=== PATIENT | female | born 1945 | race Caucasian/White ===

== ENCOUNTER → 2018-02-15 14:54 | Outpatient (CLI) | payer OTHER, SELFPAY ==
[2018-02-15 16:42] LABS: Alanine Aminotransferase 32 IU/L (9-52); Albumin 4.1 g/dL (3.5-5.0); Albumin Globulin Ratio 1.6 (1.0-2.8); Alkaline Phosphatase 76 U/L (38-126); Aspartate Aminotransferase 25 IU/L (14-36); BUN Creatinine Ratio 27.5 (6-22); Bilirubin Total 0.5 mg/dL (0.2-1.3); Blood Urea Nitrogen 22 mg/dL (7-17); Calcium 9.7 mg/dL (8.4-10.2); Carbon Dioxide 30 mmol/L (22-32); Chloride 99 mmol/L (98-107); Estimated Glomerular Filt Rate > 60.0 mL/min (>60); Globulin 2.5 g/dL (1.7-4.1); Glucose 92 mg/dL (80-110); HEMOLYSIS < 15 (0-50); Potassium 3.8 mmol/L (3.4-5.1); Sodium 140 mmol/L (137-145); Total Protein 6.6 g/dL (6.3-8.2)
[2018-02-15 17:00] LABS: Free T4, Direct Thyroxine 1.54 ng/dL (0.78-2.19)
[2018-02-15 17:14] LABS: Thyroid Stimulating Hormone 1.38 uIU/mL (0.47-4.68)
== END ==
PROVIDERS: PCP Internal Medicine; Visit Provider Internal Medicine
DX: E03.9 Hypothyroidism, unspecified (principal); I10 Essential (primary) hypertension; K21.9 Gastro-esophageal reflux disease without esophagitis
CPT/HCPCS: 36415; 80053; 84439; 84443

== ENCOUNTER → 2018-04-16 11:17 | Outpatient (CLI) | payer OTHER, SELFPAY ==
[2018-04-16 12:49] LABS: Blood Urea Nitrogen 20 mg/dL (7-17); Calcium 9.1 mg/dL (8.4-10.2); Carbon Dioxide 31 mmol/L (22-32); Chloride 103 mmol/L (98-107); Estimated Glomerular Filt Rate > 60.0 mL/min (>60); Glucose 84 mg/dL (80-110); HEMOLYSIS < 15 (0-50); Potassium 3.7 mmol/L (3.4-5.1); Sodium 143 mmol/L (137-145)
[2018-04-16 13:01] LABS: Free T4, Direct Thyroxine 1.37 ng/dL (0.78-2.19)
[2018-04-16 13:15] LABS: Thyroid Stimulating Hormone 0.11 uIU/mL (0.47-4.68)
== END ==
PROVIDERS: PCP Internal Medicine; Visit Provider Internal Medicine
DX: E03.9 Hypothyroidism, unspecified (principal); I10 Essential (primary) hypertension
CPT/HCPCS: 36415; 80048; 84439; 84443

== ENCOUNTER → 2018-10-17 12:49 | Outpatient (CLI) | payer OTHER, SELFPAY ==
--- NOTE | 2018-10-17 | DI.CT.S_ITS ---
PROCEDURE: CT UE LT WO CON INDICATIONS: Primary osteoarthritis, left shoulder pain TECHNIQUE: Noncontrast 1-1.5 mm thick sections acquired from the acromioclavicular joint to the inferior scapula, with coronal and sagittal reformatting. COMPARISON: None. FINDINGS: Image quality: Excellent. Bones: No acute fracture or focal osseous destruction. There is cervical spondylosis. There is severe glenohumeral joint degeneration with prominent osteophyte formation, subchondral sclerosis and cystic change. There is anatomic alignment. Mild AC joint degeneration. Segmental degenerative cystic change and cortical hypertrophy at the posterior glenoid raises the possibility of chronic posterior labral tear. Diffuse osteopenia. Soft tissues: Visualized lungs unremarkable. Fatty infiltration and atrophy of the infraspinatus muscle. IMPRESSION: Severe glenohumeral and mild AC joint degeneration. Extensive segmental degenerative changes and hypertrophy of the posterior glenoid suggests chronic posterior labral tear. Cervical disc degeneration. Atrophy of the infraspinatus muscle suggests long-standing infraspinatus tendon full versus partial-thickness tear. Dictated by: Flash Oneal M.D. on 10/17/2018 at 15:35 Approved by: Flash Oneal M.D. on 10/17/2018 at 15:40
== END ==
PROVIDERS: PCP Internal Medicine; Visit Provider Orthopaedic Surgery
DX: M19.012 Primary osteoarthritis, left shoulder (principal); M50.30 Other cervical disc degeneration, unspecified cervical region
CPT/HCPCS: 73200

== ENCOUNTER → 2018-11-26 11:35 | Outpatient (CLI) | payer OTHER, SELFPAY ==
[2018-11-26 12:52] LABS: Hematocrit 41.4 % (36-46); Hemoglobin 13.5 g/dL (12.0-16.0); Mean Corpuscular HGB Conc 32.7 % (30-36); Mean Corpuscular Hemoglobin 30.2 PG (26-34); Mean Corpuscular Volume 92.4 fL (80-100); Platelet Count 348 X10^3/uL (150-400); Red Blood Cell Count 4.48 X10^6/uL (4.0-5.2); Red Cell Distribution Width 14.5 % (11.6-14.8); White Blood Cell Count 7.4 X10^3/uL (4.5-11.0)
[2018-11-26 13:02] LABS: Prothrombin Time 11.8 SECONDS (10.1-12.7)
[2018-11-26 13:56] LABS: Carbon Dioxide 29 mmol/L (22-32); Chloride 101 mmol/L (98-107); HEMOLYSIS < 15 (0-50); Potassium 5.1 mmol/L (3.4-5.1); Sodium 138 mmol/L (137-145)
== END ==
PROVIDERS: PCP Internal Medicine; Visit Provider Orthopaedic Surgery
DX: Z01.818 Encounter for other preprocedural examination (principal); Z51.81 Encounter for therapeutic drug level monitoring
CPT/HCPCS: 36415; 80051; 85027; 85610; 93005

== ENCOUNTER 2018-12-06 09:10 | Inpatient (IN) | payer OTHER, SELFPAY ==
[2018-11-25 13:57] VITALS: BMI 34.0
[2018-12-06] VITALS (16 sets, daily range): BP systolic 100–131; BP diastolic 61–85; PULSE 74–104; RESP 12–20; TEMP 36.5–36.8; O2SAT 91–100; BMI 34.0
--- NOTE | 2018-12-06 06:00 | DI.RAD.S_ITS ---
PROCEDURE: XR SHOULDER LT MIN 2V INDICATIONS: POST OP TECHNIQUE: 2 views of the shoulder were acquired. COMPARISON: None. FINDINGS: Bones: Patient is status post left shoulder arthroplasty. Shoulder alignment is anatomic. No fracture or dislocation. No gross hardware loosening or failure. Soft tissues: Post surgical changes are noted in lateral left shoulder soft tissue. IMPRESSION: Post left shoulder arthroplasty changes with anatomic shoulder alignment. Dictated by: Khadar Penn M.D. on 12/06/2018 at 15:22 Approved by: Khadar Penn M.D. on 12/06/2018 at 15:23
[2018-12-06] MEDS: ACETAMINOPHEN 325 MG TABLET 975 MG PO (09:36)
[2018-12-06] MEDS: PREGABALIN 75 MG CAPSULE PO (09:37)
[2018-12-06] MEDS: CELECOXIB 200 MG CAPSULE PO (09:38)
[2018-12-06] MEDS: LACTATED RINGERS 1,000 ML 42 ML IV ×2 (09:40→11:55)
[2018-12-06] MEDS: VANCOMYCIN 1,000 MG/200 ML PIGGYBACK 200 MG IV ×2 (09:55→21:08)
--- NOTE | 2018-12-06 10:33 | PM.PREOP ---
Pre-operative Note Interval Note History & Physical reviewed/Exam performed by Physician: Yes Changes to H&P: No
[2018-12-06] MEDS: fentaNYL 100 MCG/2 ML INJ 50 MCG IV ×2 (10:55→11:00)
[2018-12-06] MEDS: MIDAZOLAM 2 MG/2 ML VIAL IV (10:55)
[2018-12-06] MEDS: GENTAMICIN 200 MG in SODIUM CHLORIDE 0.9% 100 ML 105 ML IV (11:10)
--- NOTE | 2018-12-06 11:16 | SUR.PREOP ---
Block start time [1055] . Monitoring initiated and maintained throughout procedure. Oxygen and medications given per anesthesiologist instructions. Patient remained stable throughout procedure, no adverse reactions noted. Block end time [1105].
--- NOTE | 2018-12-06 11:47 | SUR.OPER ---
Beach chair with skytron shoulder positioner. Lower body on padded OR bed. Head in foam padded head cradle, secured with straps. Non-operative arm secured <90 degrees abduction. Pillow under knees. Safety belt at thigh. Cloth tape over blanket over lower legs.
[2018-12-06] MEDS: LIDOCAINE 1% W/EPI INJ 20 ML INJ ×2 (12:03→12:04)
--- NOTE | 2018-12-06 13:42 | PM.OP.1 ---
Operative Date/Time/Diagnoses Date of procedure: 12/06/18 Time of procedure: 11:31 Pre-op diagnosis: Left end-stage shoulder arthritis Post-op diagnosis: same Procedure & Clinicians Procedure: Left total shoulder arthroplasty Same procedure as scheduled: Yes Indications: Left end-stage glenohumeral joint arthritis Surgeon: Reza Hendrix Vegetable Preparer: Macarena Walker Anesthesia Type: General and Peripheral nerve block Operative Notes Findings: End-stage arthritic changes to the glenohumeral joint. No sign of any significant rotator cuff pathology. Osteophytes involving the anterior and inferior aspect of the humeral head and neck. Some deformity to the humeral head due to arthritis. Some mild posterior wear of the glenoid. Closure Type: primary Specimen(s): none sent Prosthetic devices, grafts, tissues, transplants, or devices: Arthrex 6mm stem, Small Glenoid, 44x17 head Applied: implant(s) Estimated Blood Loss (mL): 100 Blood products transfused: none Procedure in detail: On date of service, Patient was met in the holding area. The operative site was signed and witnessed by the OR staff. The surgeries once again discussed with the patient and any remaining questions they had were answered fully. Patient was taken back to the operating theater and placed on the operating table in a supine position. Great care was taken to ensure that all bony prominences were properly padded. Patient was then placed into the beach chair position. The head and neck were properly positioned and secured. A timeout was performed verifying patient's name, procedure, and the operative site. The upper extremity was then prepped and draped in the normal sterile fashion. Previously, the bony anatomy and incision were marked out as well as injected with Marcaine with epinephrine. A deltopectoral approach was performed. 10 blade was used to incise the skin and fascial tissue. A deep knife was used to continue sharp dissection until the cephalic vein was visualized. The cephalic vein was dissected free allowing us to expose the deltopectoral interval. This interval was then developed. A Pruitt elevator was used to free up the deltoid of any scarring both superficially as well as deeply. The vein and the deltoid were taken laterally while the pectoralis was taken medially. This gave us good visualization of the strap muscles. The clavipectoral fascia was removed and the strap muscles were then retracted medially with the pectoralis. This gave us stabilization of the subscapularis. The circumflex vessels were ligated and the subscapularis was sharply excised off the lesser tuberosity and then tagged. Once the subscapularis was released we're able to dislocate the shoulder. Patient had end-stage arthritic changes to the humeral head as well as the glenoid with large osteophytes anterior inferiorly as well as posteriorly. A Ronger was then used to remove the osteophytes. Next, cutting guide was placed and a saw was used to remove the humeral head. Once the head was removed it was templated. A starting awl was then used to find the canal and then the humerus was reamed and broached. Trial stem was placed and a variety of heads were trialed. A protector placed for the osteotomy was then placed and and we turned our attention back to the subscapularis as well as the glenoid. The subscapularis was freed up and a 360? fashion. The degenerative anterior and inferior capsular tissue was removed. This was followed by removing the degenerative labral tissue from around the glenoid as well as the biceps insertion. This gave us good visualization of the glenoid. Glenoid trials were used until we found the appropriate fit and curvature. Next the center hole was drilled followed by reaming of the glenoid. The wound was copiously irrigated after reaming. Next the pegs were drilled and a trial glenoid was impacted into place. Once we were satisfied with the preparation of the glenoid, the final component was cemented into place. This was followed by impaction. We Return to our attention back to the humerus. The protector plate was removed and heads were trialed once again and so we found the appropriate fit. The trials were removed and bone tunnels were made into the humeral neck. #2 FiberWire were passed through the bone tunnels for eventual subscapularis repair. The final stem and head were impacted into place and the shoulder was reduced. It was taken through range of motion and was felt to be stable in both posterior translation as well as external and internal rotation with abduction. The subscapularis was repaired back to the lesser tuberosity through the bone tunnels. This was then reinforced with soft tissue repair. Part of the rotator interval was then closed. A drain was placed and the rest of the wound was closed in a layered fashion. The shoulder was then cleaned dried and dressed and the patient was taken to the PACU in stable condition. Patient will follow our postoperative protocol for total shoulder arthroplasty. Complications: none Condition: stable Disposition: PACU Plan for aftercare: Patient will be admitted overnight for pain control. Patient can go home tomorrow as long as she is comfortable. Patient will follow our postoperative protocol for total shoulder arthroplasty.
[2018-12-06] MEDS: HYDROCODONE/ACET 5/325 TABLET 1 TAB PO ×2 (14:37→15:10)
--- NOTE | 2018-12-06 15:40 | SUR.PHASEI ---
Pt transferred to room 209 via bed with all belongings. Last vital signs stable and last assessment stable; see flowsheet documentation for details. Report given to ASPEN Pabon prior to transfer. Upon arrival to room 209 Pepper to bedside; handoff assessment done. ASPEN Pabon to assume care of pt at this time.
[2018-12-06] MEDS: LACTATED RINGERS 1,000 ML 125 ML IV (16:39)
--- NOTE | 2018-12-06 17:58 | PT.IIE ---
Current Diagnoses Primary osteoarthritis, left shoulder (12/06/18) Surgery Performed Operation Date: 12/06/18 11:00 Actual Procedures p Total Shoulder Arthroplasty(Left) - Reza Hendrix MD Surgical History (Last Updated 11/25/18 @ 14:21 by Kiara Newby RN) Hx of appendectomy (Acute ~1983) Hx of cholecystectomy (Acute ~1983) Hx of tonsillectomy (Acute) History of arthroplasty (Resolved) History of breast biopsy (Resolved ~1985) History of gastric bypass (Resolved ~2015) Medical History (Last Updated 11/25/18 @ 14:22 by Kiara Newby RN) Chronic pain syndrome (Chronic) Essential hypertension (Chronic) Hypothyroidism (acquired) (Chronic) GERD (gastroesophageal reflux disease) (Chronic) Fibromyalgia (Chronic) Osteoarthritis (Chronic) Generalized anxiety disorder (Chronic) Depression (Chronic) Obstructive sleep apnea syndrome (Chronic 06/07/15) Chronic pain of both ankles (Chronic 11/30/16) Amputated toe of right foot (Acute ~12/2016) Easy bruisability (Acute) H/O: hysterectomy (Acute ~1984) Joint pain (Acute) Numbness (Acute) Morbid obesity due to excess calories (Resolved 06/07/15) Physical Therapy Inpatient Evaluation/Re-Eval M1 PT/OT-IP Prior Functional Status Start: 12/06/18 17:25 Freq: NEEDED Status: Active Protocol: Document 12/06/18 17:10 (Rec: 12/06/18 17:58 [id number]) Medical Review Prior Functional Status Medical History Reviewed Yes Diet/Fluid Consistency Regular Communication Able to make needs known Mobility and Gait Pt is independent for mobility at home and community without AD, but pt usually leave her 4WW next to steps at entrance for support. She also uses 4WW at night from bed to bathroom . Activities of Daily Living and IADL's Independent for ADLs and IADLs without AD. Social History Household Members spouse Living Arrangements House Number of Floors (Floors) Two Floors Number of Stairs To Enter/Railing? 1 threshold to enter without rails Home Environment Standard Height Toilet Walk in Shower Home Equipment Four Wheel Walker Straight Cane Shower Seat with Backrest Employment Status Retired Additional Social History Comment Pt lives wiht her in [place] and granddtr visits them occasionally. Pt anticipates to follow up with outpatient PT in [place] in 10 days. PMH includes bilateral TKA, wearing braces for her B pronated feet. M2 PT-IP Current Condition Start: 12/06/18 17:25 Freq: NEEDED Status: Active Protocol: Document 12/06/18 17:10 (Rec: 12/06/18 17:58 [id number]) Physical Therapy Current Condition Current Condition Evaluation Date 12/06/18 Treatment Diagnosis R TSA Onset Date 12/06/18 Precautions Shoulder Precautions Sling PROM Internal Rotation to Body No External Rotation No Abduction Forward Flexion to 90 degrees Pendulums Weight Bearing Status Weight Bearing Status Non-Weight Bearing M3 PT-IP Subjective Start: 12/06/18 17:25 Freq: NEEDED Status: Active Protocol: Document 12/06/18 17:10 (Rec: 12/06/18 17:58 [id number]) Subjective Physical Therapy Visit Type Type Initial Evaluation Visit Start Time 17:10 Visit Stop Time 17:30 Total Visit Minutes 20 Notes pt;s at bedside Number of SHIPPING HAND Visits 0 Physical Therapy Visit Comments Patient Comments Pt agreeable to mobilize with PT Patient Goals To return home and participate outpatient PT Therapy Pain Assessment Pain When Pain Assessed During Mobility Pain Present Pain Present Denied Pain M4 PT-IP Mobility and Gait Start: 12/06/18 17:25 Freq: NEEDED Status: Active Protocol: Document 12/06/18 17:10 (Rec: 12/06/18 17:58 [id number]) PT-Bed Mobility Assessment Rolling Type of Rolling Roll to Right Level of Assist Contact Guard Assistance Supine to Sit Supine to Sit Contact Guard Assistance Head of Bed Elevated Bedrails Scooting Scooting to Edge of Bed Contact Guard Assistance PT-Transfer Assessment Sit to and From Stand Sit to and from Stand Contact Guard Assistance Use of Upper Extremities Equipment Transfer Assistive Device None Gait Belt Orthotic/Prosthetic Devices or Brace: Yes Transfers Transfer Destination Bed Chair Transfer Technique Stand Step Pivot Transfer Ability Level of Assist Contact Guard Assistance Comments Mobility Comments BP: 120s/60s pre mobility and 109/60 post mobility. Pt was in bed upon assessment. She was instructed to long sit position from elevated HOB , followed by post op shoulder sling adjustment. Pt performs overall bed mobility and transfers with CGA. Gait Assessment Gait Gait Assistance Required: Contact Guard Assist Distance (Feet) 180 Able to Maintain Weight Bearing Status Yes During Gait Assistive Devices Assistive Device Gait Belt Orthotic/Prosthetic Devices or Brace: Yes Gait Deviations General Gait Pattern Decreased Stride Length Decreased Feet Clearance Factors Limiting Gait Function Factors Limiting Gait Function Decreased Activity Tolerance Limited Range of Motion Comments Gait Comments Pt has IV insertion at her R wrist who c/o discomfort while using SPC/ QC/ FWW. Pt was able to amb with IV pole on R UE for a total of 180 ft CGA. Her gait appears slightly slower without using AD for 20 ft, but overall remains very steady with IV pole. PT-Balance Assessment Sitting Balance and Reactions Static Sitting Balance Ability Normal Dynamic Sitting Balance Ability Normal Standing Balance and Reactions Static Standing Balance Ability Normal Dynamic Standing Balance Ability Normal M5 PT-IP Objective Assessments Start: 12/06/18 17:25 Freq: NEEDED Status: Active Protocol: Document 12/06/18 17:10 (Rec: 12/06/18 17:58 [id number]) Orientation Orientation/Cognition Level of Alertness Alert Orientation Name Age Birthday Month Date Year Day of Week Place Situation Language Function Ability No Deficits Noted Safety Awareness Understands Safety Issues Memory Description No Deficits Noted Gross Range of Motion Upper Extremity ROM Assessment Left Impaired Lower Extremity ROM Assessment Within Functional Limits Strength Upper Extremity Strength Assessment Within Functional Limits Coordination Assessment Gross Coordination Gross Coordination WNL Sensation Assessment Sensation Gross Sensation WNL Left UE Impaired Light Touch Impaired Proprioception (Position) Impaired Sensation Description Paresthesia Numbness M6 PT-IP Treatment Start: 12/06/18 17:25 Freq: NEEDED Status: Active Protocol: Document 12/06/18 17:10 (Rec: 12/06/18 17:58 [id number]) Physical Therapy Treatment Education Education Provided Precautions Weight Bearing Status Post-Op Packet Safety Other Treatments Other Treatment Performed Education on shoulder pendulums M7 PT-IP Assessment and Plan Start: 12/06/18 17:25 Freq: NEEDED Status: Active Protocol: Document 12/06/18 17:10 (Rec: 12/06/18 17:58 [id number]) PT Summary Assessment and Plan Potential Rehabilitation Potential Excellent Status of Condition at Evaluation Stable Summary Impairments Pain ROM Strength Bed Mobility Transfers Gait Activity Tolerance Assessment Summary Pt is low complexity who is POD#0 R TSA. Adjusted her post op arm-sling during session. Pt is able to amb 180 ft with IV pole and CGA. Pt appears very steady and has good understanding of her current condition and post op precautions. She is expected to be d/c home with 's assistance once she is medically stable. Goals Bed Mobility Goal Independent Transfer Goal Independent Cane Gait Goal Independent Cane Gait Distance 300 Other Goals climb 1 Step without rail Days to Meet Goals 3 Frequency of Treatment Frequency Of Treatment Twice a Day Treatment Plan Physical Therapy Treatment Plan Bed Mobility Training Transfer Training Gait Training Therapeutic Exercise Balance Retraining Post Op Education Discharge Planning Hot or Cold Pack Other Recommendations and Next Treatment bed mob, transfers and gait Focus training as rachel with LRAD Recommendations To Nursing Amount of Assist Needed 1 Person Assist Discharge Recommendations PT Discharge Recommendations Home with Assistance Outpatient PT Equipment Needed for Home Before grab bar next to toilet and in Discharge shower
[2018-12-06] MEDS: HYDROCODONE/ACET 5/325 TABLET 2 TAB PO (20:59)
[2018-12-06] MEDS: BENAZEPRIL 20 MG TABLET 40 MG PO (20:59)
[2018-12-06] MEDS: LEVOTHYROXINE 50 MCG TABLET PO (21:00)
[2018-12-06] MEDS: clonazePAM 0.5 MG TABLET 1 MG PO (21:00)
[2018-12-06] MEDS: GABAPENTIN 300 MG CAPSULE PO (21:01)
[2018-12-06] MEDS: DOCUSATE 250 MG CAPSULE PO (21:03)
[2018-12-07 00:23] VITALS: BP 105/65; PULSE 69; RESP 16; TEMP 36.3; O2SAT 100
[2018-12-07] MEDS: HYDROCODONE/ACET 10/325 TABLET 1 TAB PO ×4 (01:05→16:08)
[2018-12-07] MEDS: LACTATED RINGERS 1,000 ML 125 ML IV (01:09)
--- NOTE | 2018-12-07 05:47 | PC.NURSE ---
NOC Shift: Pt stable POD #1 Left shoulder repair, VSS, pt ambulating w/SBA to bathroom. Adaquate pain control with po pain medication 09/25. Wearing sling appropriately, regained feeling to left hand, fingers. Warm to touch. Complains of slight numbness but thinks it is the sling, and arm position. IVF's continue until AM. Pt to discharge to home today if pain is well under control per MD.
[2018-12-07 06:08] VITALS: BP 101/54; PULSE 73; RESP 16; TEMP 36.4; O2SAT 99
[2018-12-07] MEDS: clonazePAM 0.5 MG TABLET PO (06:32)
[2018-12-07 06:52] LABS: Hemoglobin 11.1 g/dL (12.0-16.0); Mean Corpuscular HGB Conc 32.8 % (30-36); Mean Corpuscular Hemoglobin 30.3 PG (26-34); Mean Corpuscular Volume 92.4 fL (80-100); Platelet Count 315 X10^3/uL (150-400); Red Blood Cell Count 3.68 X10^6/uL (4.0-5.2); Red Cell Distribution Width 14.3 % (11.6-14.8); White Blood Cell Count 13.2 X10^3/uL (4.5-11.0)
[2018-12-07 07:30] VITALS: BP 101/59; PULSE 61; RESP 16; TEMP 36.6; O2SAT 99
[2018-12-07] MEDS: CHOLECALCIFEROL (VITAMIN D3) 1,000 UNIT TABLET 2000 UNIT PO (08:21)
[2018-12-07] MEDS: DOCUSATE 100 MG CAPSULE PO (08:22)
[2018-12-07] MEDS: METOPROLOL ER 50 MG TABLET PO (08:23)
[2018-12-07] MEDS: MULTIVITAMIN 1 TABLET 1 TAB PO (08:23)
[2018-12-07] MEDS: GABAPENTIN 300 MG CAPSULE PO ×3 (08:23→16:18)
[2018-12-07] MEDS: PANTOPRAZOLE 40 MG TABLET PO (08:24)
[2018-12-07] MEDS: HYDROMORPHONE 2 MG INJ IV (08:25)
[2018-12-07 08:58] VITALS: O2SAT 98
[2018-12-07] MEDS: MELOXICAM 7.5 MG TABLET 15 MG PO (10:34)
--- NOTE | 2018-12-07 11:25 | P.DS_ITS ---
History of Present Illness Date Patient Seen: 12/07/18 Time Patient Seen: 11:24 Chief complaint: 51145 Shoulder Arthroplasty Narrative: Please see HPI in the chart. Discharge Providers Date of admission: 12/06/18 09:10 Discharge Date: 12/07/18 Primary care physician: Rajiv William MD Consults: 12/06/18 13:39 Consult to Discharge Planning Routine Comment: Consult to Physical Therapy Evaluate & Treat Comment: Physician Instructions: Evaluate and Treat Consult to Respiratory Therapy Evaluate & Treat Comment: Physician Instructions: Evaluate and treat 12/07/18 10:55 Consult to Occupational Therapy Evaluate & Treat Comment: left shoulder arthroplasty Physician Instructions: Evaluate and treat Discharge provider: Lita Rowell PA-C Summary Discharge Diagnosis: s/p left shoulder arthroplasty Hospital Course: On date of service, Patient was met in the holding area. The operative site was signed and witnessed by the OR staff. The surgeries once again discussed with the patient and any remaining questions they had were answered fully. She was taken to the operating room and underwent left shoulder arthroplasty with Dr. Hendrix 12/06/18. She has been progressing well on POD#1. D rain has been removed. She has mobilized about the room and is planned to work with PT/OT prior to discharge. Some issues with pain control, Dilaudid and Meloxicam added today in an effort for better control. Pending better pain control this afternoon she will ready for discharge this afternoon. Her is available at home as caregiver and she is being discharged to home with supply of Dilaudid and Meloxicam. She is scheduled for outpatient follow up. Status at Discharge Cognitive/behavioral status at discharge: oriented Functional status at discharge: independent ambulation Overall status at discharge: patient is progressing back to baseline Exam Vital Signs (past 8 hours): - 12/07/18 06:08 12/07/18 07:30 12/07/18 08:58 Temperature 97.5 F L 97.8 F Pulse Rate 73 61 Respiratory Rate 16 16 Blood Pressure 101/54 L 101/59 L Pulse Oximetry 99 99 98 Oxygen Delivery Method Room Air Oxygen Flow Rate 0 Narrative Exam Narrative: 73 year old female resting in bed. Alert and oriented in no acute distress. Somewhat anxious. Dressing in place over left shoulder is clean, dry, and intact. Intact fl exion/extension in the fingers and wrist. Sensation intact in distal extremity with palpable pulse. Objective Labs Result Diagrams: 12/07/18 06:30 Labs: Laboratory Results - last 24 hr 12/07/18 06:30 WBC 13.2 H RBC 3.68 L Hgb 11.1 L Hct 34.0 L MCV 92.4 MCH 30.3 MCHC 32.8 RDW 14.3 Plt Count 315 Discharge Plan Discharge Plan Patient Disposition: Home Discharge Med Rec/Prescriptions Prescriptions: New acetaminophen 325 mg Tablet 975 mg PO TID PRN (Reason: Headache) Qty: 60 RF: 0 hydromorphone 2 mg Tablet 2 mg PO Q4-6H PRN (Reason: Pain, Moderate (4-6)) Qty: 40 RF: 0 meloxicam [Mobic] 7.5 mg Tablet 15 mg PO DAILY Qty: 30 RF: 0 Continued cholecalciferol (vitamin D3) [Vitamin D3] 2,000 unit Capsule 2,000 unit PO DAILY Qty: 0 RF: 0 MULTIVITAMIN (#MULTIPLE VITAMINS) 1 cap PO DAILY Qty: 0 RF: 0 gabapentin [Neurontin] 300 mg capsule 300 mg PO QID Qty: 360 RF: 3 hydrochlorothiazide 25 mg tablet 25 mg PO QDAY Qty: 90 RF: 3 metoprolol succinate [Toprol XL] 50 mg tablet extended release 24 hr 50 mg PO Q DAY Qty: 90 RF: 3 clonazepam 0.5 mg tablet See Rx Instructions PO .COMPLEX Qty: 90 RF: 3 docusate sodium 250 mg capsule 250 mg PO BID Qty: 180 RF: 3 hydrocodone-acetaminophen 10-325 mg tablet 1 tab PO QID PRN (Reason: pain) Qty: 120 RF: 0 turmeric root extract 500 mg capsule 1,000 mg PO BID RF: 0 mecobalamin (vitamin B12) 1,000 mcg tablet,disintegrating 1,000 mcg SL DAILY RF: 0 biotin 5,000 mcg tablet,disintegrating 5,000 mcg PO DAILY RF: 0 pantoprazole 40 mg tablet,delayed release (DR/EC) 40 mg PO QDAY Qty: 90 RF: 3 naproxen sodium [Aleve] 220 mg capsule 6 - 8 tab PO DAILY PRN (Reason: Pain) RF: 0 adjuvant AS01B (PF)vial 1 of 2 [Shingrix Adjuvant Component-PF] suspension See Rx Instructions IM ONCE Qty: 0.5 RF: 1 levothyroxine [Synthroid] 50 mcg tablet 50 mcg PO BEDTIME RF: 0 benazepril [Lotensin] 40 mg tablet 40 mg PO BEDTIME RF: 0 Follow up/Referrals: Reza Hendrix MD [Physician] - Provider Discharge Instructions Diet: Diet as Tolerated Activity: Wear sling at all times except for hygiene. Cold/Heat Therapy: Ice packs as needed. Skin/Wound/Dressing Care Report to your healthcare provider any signs of infection, such as:: chills, fever, night sweats, unusual drainage and unusual redness Visit Report/Discharge Packet Instructions: DI for Shoulder Replacement Discharge Data Primary Care Provider: Rajiv William Attending Provider: Reza Hendrix Admit Date/Time: 12/06/18 09:10 Quality VTE Deep Vein Thrombosis/Pulmonary Embolism Present on Admission: No
[2018-12-07 11:26] VITALS: BP 109/58; PULSE 64; RESP 16; TEMP 36.6; O2SAT 100
[2018-12-07] MEDS: HYDROMORPHONE 2 MG TABLET PO (11:42)
--- NOTE | 2018-12-07 12:31 | PC.NURSE ---
Addendum entered by Lisa Luna R.N. 12/07/18 14:29: PAIN - continues to work with OT after the 2nd dose 2mg dilaudid, it still hurts quite bit, I have hope alert, conversant, calm, does admit that it is not throbbing as previously reported. Addendum entered by Lisa Luna R.N. 12/07/18 13:52: PAIN/MS - states discomfort 8/10 when moving l shoulder, PT had lengthy discussion about the limitations, emphasizing pendulum only, states I heard I could have 2 pills, added a 2nd 2mg po dilaudid, discussed with both pt and spouse to monitor breathing, LOC and any signs too much medication when pt taking both dilaudid and hydrcodone at home, reinforced dosages and timing limitations, pt seated chair conversing with OT. Original Note: AM NOTE - pt states her pain has not been well managed during night, 7-8 on scale 0/10 l shoulder, discussed pain mgt, has hx taking 10mg norco qid at home, later am discussed with DOTTY and adding meloxicam and po dilaudid and will continue with the prn norco, l shoulder sling in place, some limited movement l fingers, still some numbness present, aquacell dsg w/spot shadow drainage within margins distal end, hemovac dc'd, per discussion with Lita STORM, pt may dc home if pain management improves later afternoon or she can be called if needed to cancel [phone], started with po 2mg dilaudid for breakthru discomfort 8 on scale 0/10.
--- NOTE | 2018-12-07 13:19 | CM.IDA ---
Initial DCP Assessment Note: Pt is a 73 yo female, resident of [place], now POD#1 from shoulder surgery w/ Dr Hendrix PCP: Dr William Payer: Grant LOPEZ Reviewed chart, pt discussed in multidisciplinary rounds this morning. Therapy has now cleared pt for return home w/family to assist and pt has planned for home and outpt PT in [place], DC order from [facility] has already been initiated this morning, pending pt's pain control improves this afternoon. No needs expected from DC planning team although will remain available in case this changes. DC either later today or tomorrow, home w/spouse to assist and outpt PT. MAL Silva Discharge Planning/Care Management CM Discharge Assessment Start: 12/07/18 13:15 Freq: Status: Active Protocol: Document 12/07/18 13:15 MARIA D (Rec: 12/07/18 13:19 MARIA D [id number]) Discharge Planning Assessment Assigned Forge Hand MAL Lawton DPOA/Assigned Designee Name Fernando Dillon, spouse Contact Information [phone] Advance Directives? Yes Advance Directives on File Yes History Provided By Patient Significant Other Medical Record Prior Living Arrangements House Household Members spouse Type of transporation used prior to Drives own vehicle admit Independent with ADL's Yes Is patient alert and oriented? Yes Barriers to Discharge Yes Comment Pt having pain control issues today, DC might be held. Discharge Plan Home Transportation Arrangement Family Referrals Initiated None needed Review Status In Process
[2018-12-07] MEDS: HYDROMORPHONE 4 MG TABLET PO (13:49)
--- NOTE | 2018-12-07 14:06 | PT.IPTN ---
Current Diagnoses Primary osteoarthritis, left shoulder (12/06/18) Surgery Performed Operation Date: 12/06/18 11:00 Actual Procedures p Total Shoulder Arthroplasty(Left) - Reza Hendrix MD Physical Therapy Treatment Note M2 PT-IP Current Condition Start: 12/06/18 17:25 Freq: NEEDED Status: Active Protocol: Document 12/06/18 17:10 HH (Rec: 12/06/18 17:58 HH [id number]) Physical Therapy Current Condition Current Condition Evaluation Date 12/06/18 Treatment Diagnosis R TSA Onset Date 12/06/18 Precautions Shoulder Precautions Sling PROM Internal Rotation to Body No External Rotation No Abduction Forward Flexion to 90 degrees Pendulums Weight Bearing Status Weight Bearing Status Non-Weight Bearing M3 PT-IP Subjective Start: 12/06/18 17:25 Freq: NEEDED Status: Active Protocol: Document 12/07/18 13:50 GGD (Rec: 12/07/18 14:06 GGD [id number]) Subjective Physical Therapy Visit Type Type Treatment Note Visit Start Time 13:25 Visit Stop Time 13:50 Total Visit Minutes 25 Number of REFLEXOLOGIST Visits 1 Physical Therapy Visit Comments Patient Comments Pt willing to work with therapy. Therapy Pain Assessment Pain When Pain Assessed During Mobility Pain Present Pain Present Pain Reported Location Left Shoulder Intensity 8 Scale Used Numeric (1 - 10) M4 PT-IP Mobility and Gait Start: 12/06/18 17:25 Freq: NEEDED Status: Active Protocol: Document 12/07/18 13:50 GGD (Rec: 12/07/18 14:06 GGD [id number]) PT-Bed Mobility Assessment Supine to Sit Supine to Sit Standby Assistance Head of Bed Elevated Scooting Scooting to Edge of Bed Standby Assistance PT-Transfer Assessment Sit to and From Stand Sit to and from Stand Contact Guard Assistance Use of Upper Extremities Equipment Transfer Assistive Device None Gait Belt Orthotic/Prosthetic Devices or Brace: Yes Transfers Transfer Destination Chair Transfer Ability Level of Assist Contact Guard Assistance Gait Assessment Gait Gait Assistance Required: Contact Guard Assist Distance (Feet) 230 Able to Maintain Weight Bearing Status Yes During Gait Assistive Devices Assistive Device None Gait Belt Orthotic/Prosthetic Devices or Brace: Yes Gait Deviations General Gait Pattern Decreased Stride Length Decreased Feet Clearance Factors Limiting Gait Function Factors Limiting Gait Function Decreased Activity Tolerance Limited Range of Motion Stair Climbing Assessment Evaluation Level of Assist On Stairs Contact Guard Assistance Devices Stair Climbing Assistive Devices None Left Railing Technique/Endurance Stair Climbing Direction Ascend and Descend Stair Climbing Technique Step to Step Number of Steps Climbed 3 Stair Climbing Set # Repetitions (reps) 2 M5 PT-IP Objective Assessments Start: 12/06/18 17:25 Freq: NEEDED Status: Active Protocol: Document 12/06/18 17:10 HH (Rec: 12/06/18 17:58 HH [id number]) Orientation Orientation/Cognition Level of Alertness Alert Orientation Name Age Birthday Month Date Year Day of Week Place Situation Language Function Ability No Deficits Noted Safety Awareness Understands Safety Issues Memory Description No Deficits Noted Gross Range of Motion Upper Extremity ROM Assessment Left Impaired Lower Extremity ROM Assessment Within Functional Limits Strength Upper Extremity Strength Assessment Within Functional Limits Coordination Assessment Gross Coordination Gross Coordination WNL Sensation Assessment Sensation Gross Sensation WNL Left UE Impaired Light Touch Impaired Proprioception (Position) Impaired Sensation Description Paresthesia Numbness M6 PT-IP Treatment Start: 12/06/18 17:25 Freq: NEEDED Status: Active Protocol: Document 12/07/18 13:50 GGD (Rec: 12/07/18 14:06 GGD [id number]) Physical Therapy Treatment Exercises Exercises Shoulder Pendulums Education Education Provided Precautions M7 PT-IP Assessment and Plan Start: 12/06/18 17:25 Freq: NEEDED Status: Active Protocol: Document 12/07/18 13:50 GGD (Rec: 12/07/18 14:06 GGD [id number]) PT Summary Assessment and Plan Summary Assessment Summary Pt was safe with mobility. She was CGA to SBA for all mobility. She has good safety awareness and understanding of her precautions. Pt safe for home D/C when medically stable . Frequency of Treatment Frequency Of Treatment Twice a Day Treatment Plan Physical Therapy Treatment Plan Bed Mobility Training Transfer Training Gait Training Therapeutic Exercise Balance Retraining Post Op Education Discharge Planning Hot or Cold Pack Other Recommendations and Next Treatment bed mob, transfers and gait Focus training as rachel with LRAD Recommendations To Nursing Amount of Assist Needed 1 Person Assist Discharge Recommendations PT Discharge Recommendations Home with Assistance
[2018-12-07 16:00] VITALS: BP 107/67; PULSE 62; RESP 14; TEMP 36.6; O2SAT 98
--- NOTE | 2018-12-07 16:11 | OT.IP.EVAL ---
Current Diagnoses Primary osteoarthritis, left shoulder (12/06/18) Surgery Performed Operation Date: 12/06/18 11:00 Actual Procedures p Total Shoulder Arthroplasty(Left) - Reza Hendrix MD Past Medical History (Last Updated 11/25/18 @ 14:22 by Kiara Newby RN) Chronic pain syndrome (Chronic) Essential hypertension (Chronic) Hypothyroidism (acquired) (Chronic) GERD (gastroesophageal reflux disease) (Chronic) Fibromyalgia (Chronic) Osteoarthritis (Chronic) Generalized anxiety disorder (Chronic) Depression (Chronic) Obstructive sleep apnea syndrome (Chronic 06/07/15) Chronic pain of both ankles (Chronic 11/30/16) Amputated toe of right foot (Acute ~12/2016) Easy bruisability (Acute) H/O: hysterectomy (Acute ~1984) Joint pain (Acute) Numbness (Acute) Morbid obesity due to excess calories (Resolved 06/07/15) Surgical History (Last Updated 11/25/18 @ 14:21 by Kiara Newby RN) Hx of appendectomy (Acute ~1983) Hx of cholecystectomy (Acute ~1983) Hx of tonsillectomy (Acute) History of arthroplasty (Resolved) History of breast biopsy (Resolved ~1985) History of gastric bypass (Resolved ~2015) Occupational Therapy Inpatient Evaluation/Re-Eval M1 PT/OT-IP Prior Functional Status Start: 12/06/18 17:25 Freq: NEEDED Status: Active Protocol: Document 12/07/18 15:49 CGR (Rec: 12/07/18 16:11 CGR [id number]) Medical Review Prior Functional Status Medical History Reviewed Yes Diet/Fluid Consistency Regular Communication Able to make needs known Mobility and Gait Pt is independent for mobility at home and community without AD, but pt usually leave her 4WW next to steps at entrance for support. She also uses 4WW at night from bed to bathroom . Activities of Daily Living and IADL's Independent for ADLs and IADLs without AD. Social History Household Members spouse Living Arrangements House Number of Floors (Floors) Two Floors Number of Stairs To Enter/Railing? 1 step with a ledge to her left assending Home Environment Standard Height Toilet Walk in Shower Home Equipment Four Wheel Walker Straight Cane Shower Seat without Backrest Hand Held Shower Employment Status Retired M2 OT-IP Current Condition Start: 12/07/18 15:49 Freq: Status: Active Protocol: Document 12/07/18 15:49 CGR (Rec: 12/07/18 16:11 CGR [email or web address]) Occupational Therapy Current Condition Current Condition Evaluation Date 12/07/18 Treatment Diagnosis L TSA Diagnosis Onset Date 12/06/18 Post Operative Precautions Shoulder Precautions Sling PROM Internal Rotation to Body No External Rotation No Abduction Forward Flexion to 90 degrees Pendulums Weight Bearing Status Weight Bearing Status Non-Weight Bearing M3 OT- IP Subjective and Pain Start: 12/07/18 15:49 Freq: Status: Active Protocol: Document 12/07/18 15:49 CGR (Rec: 12/07/18 16:11 CGR [id number]) OT- Subjective Occupational Therapy Visit Type Type Initial Evaluation Visit Start Time 13:40 Visit Stop Time 14:40 Total Visit Minutes 60 Occupational Therapy Visit Comments Patient Comments I had to order you. For some reason they weren't going to have you come to see me till I asked. OT Pain Assessment Pain When Pain Assessed At Rest Pain Present Pain Present Pain Reported Location Left Shoulder Intensity 7 Scale Used Numeric (1 - 10) Description Aching Management Techniques Timing of Activity with Medications M4 OT- IP ADL's Start: 12/07/18 15:49 Freq: Status: Active Protocol: Document 12/07/18 15:49 CGR (Rec: 12/07/18 16:11 CGR [id number]) OT [id number] Comments OT Self-Feeding Comments Not meal time. OT ADL-Grooming Comments OT Grooming Comments Declined to perform OT ADL-Oral Care Comments Oral Care Comments Declined to perform OT ADL-Dressing General Eval Upper Body Dressing Ability Moderate Assistance Lower Body Dressing Ability Total Assistance Areas Needing Assistance Socks Orthosis/Prosthesis Comments OT Dressing Comments Educated and demonstrated dressing and sling donning and doffing. OT ADL-Toileting Comments OT Toileting Comments Pt declined. OT ADL-Bathing Comments OT Bathing Comments Educated on safety for home and recommended grab bars for home safety in the future. M5 OT- IP IADL's Start: 12/07/18 15:49 Freq: Status: Active Protocol: Document 12/07/18 15:49 CGR (Rec: 12/07/18 16:11 CGR [id number]) OT-Instrumental Activities of Daily Living Deficits IADL Deficits Identified No Deficits Home Safety Awareness Awareness of Need for Assistance at Home Good Awareness Ability to Problem Solve Emergency Able to Problem Solve Situations Medication Management Medication Management Caregiver Provides Supervision Money Management Money Management Caregiver Provides Supervision Meal Preparation Meal Preparation Caregiver Provides Assist Crew Caller Crew Caller Caregiver Provides Assist Driving Driving Comments Pt no longer drives. M6 OT- IP Functional Cognition Start: 12/07/18 15:49 Freq: Status: Active Protocol: Document 12/07/18 15:49 CGR (Rec: 12/07/18 16:11 CGR [email or web address]) Cognitive Factors Limiting Selfcare Function Cognitive Ability Level of Alertness Alert Patient Orientation Name Age Birthday Month Date Year Day of Week Place Situation Attention Span Ability Capable of Focused Attention Capable of Sustained Attention Ability to Follow Commands Able to Follow Multi-Step Commands Memory Description No Deficits Noted Safety Awareness No Deficits Noted Problem Solving Ability No deficits Noted Executive Function Ability No Deficits Noted Abstract Thinking Ability No Deficits Noted OT- Vision and Hearing OT- Hearing Assessment OT- Hearing Assessment WFL OT- Vision Assessment Visual Acuity Glasses For Reading Contact Lenses Visual Attentiveness WFL Occular Pursuits WFL Visual Convergence WFL Visual [place] WFL M7 OT- IP Mobility and Balance Start: 12/07/18 15:49 Freq: Status: Active Protocol: Document 12/07/18 15:49 CGR (Rec: 12/07/18 16:11 CGR [email or web address]) OT-Transfer Assessment Sit to and From Stand Sit to and from Stand Standby Assistance Transfers Transfer Ability Standby Assistance Technique Transfer Destination Chair Devices Transfer Assistive Devices Gait Belt OT- Balance Assessment Sitting Balance and Reactions Static Sitting Balance Ability Normal Dynamic Sitting Balance Ability Normal Standing Balance and Reactions Static Standing Balance Ability Normal Dynamic Standing Balance Ability Normal M8 OT- IP Objective Assessments Start: 12/07/18 15:49 Freq: Status: Active Protocol: Document 12/07/18 15:49 CGR (Rec: 12/07/18 16:11 CGR [email or web address]) OT Gross Range of Motion Upper Extremity Range of Motion Assessment Left Impaired ROM Impairments L TSA, limited ROM typical of sx. OT Strength Upper Extremity Strength Assessment Left Impaired OT Sensation Assessment Comments Summary Comments Pt states tingling to the L fingers from MCP distal Edema Edema Present Edema Comments minimal to the LUE M9 OT- IP Assessment and Plan Start: 12/07/18 15:49 Freq: Status: Active Protocol: Document 12/07/18 15:49 CGR (Rec: 12/07/18 16:11 CGR [email or web address]) OT Summary Assessment and Plan Potential Rehabilitation Potential Good Analytic Complexity at Evaluation Moderate Summary OT Impairments Pain Range of Motion Strength Sensation Dressing Toileting Bathing Progress Towards Goals Safe For Discharge Assessment Summary Pt tolerated session well. Pt now planned for d/c home today . She was educated on LUE distal arm exercises and significant time spent discussing safety at home. Pt is diana safe for discharge home with . Frequency of Treatment Frequency Of Treatment Discharge Discharge Recommendations OT Discharge Recommendations Home with Assistance
== END 2018-12-07 16:50 | disposition home or self-care (01) | DRG 483 ==
PROVIDERS: Admitting Provider Orthopaedic Surgery; PCP Internal Medicine; Visit Provider Orthopaedic Surgery
PROC: 0RRK0JZ Replacement of Left Shoulder Joint with Synthetic Substitute, Open Approach (ICD-10-PCS; CPT 23472; principal; 2018-12-06 11:00)
DX: M19.012 Primary osteoarthritis, left shoulder (principal); M79.7 Fibromyalgia; I10 Essential (primary) hypertension; M75.52 Bursitis of left shoulder; M25.712 Osteophyte, left shoulder
CPT/HCPCS: 36415; 73030; 85027; 97110; 97116; 97161; 97166; 97530; 97535; C1776; J0330; J1100; J1170; J2250; J2704; J3010

== ENCOUNTER → 2020-03-09 14:39 | Outpatient (CLI) | payer MEDICARE, SELFPAY ==
[2018-12-06 17:07] VITALS: BMI 34.0
[2020-03-09 15:37] LABS: Alanine Aminotransferase 43 IU/L (<35); Albumin 3.8 g/dL (3.5-5.0); Albumin Globulin Ratio 1.3 (1.0-2.8); Alkaline Phosphatase 96 U/L (38-126); Aspartate Aminotransferase 54 IU/L (14-36); BUN Creatinine Ratio 23.3 (6-22); Bilirubin Total 0.4 mg/dL (0.2-1.3); Blood Urea Nitrogen 24 mg/dL (7-17); Calcium 9.6 mg/dL (8.4-10.2); Carbon Dioxide 30 mmol/L (22-32); Chloride 100 mmol/L (98-107); Estimated Glomerular Filt Rate 52.2 mL/min (>60); Glucose 118 mg/dL (80-110); HEMOLYSIS < 15 (0-50); Potassium 4.4 mmol/L (3.4-5.1); Sodium 137 mmol/L (137-145); Total Protein 6.8 g/dL (6.3-8.2)
[2020-03-09 16:07] LABS: Thyroid Stimulating Hormone 0.298 uIU/mL (0.47-4.68)
== END ==
PROVIDERS: PCP Internal Medicine; Referring Provider Internal Medicine; Visit Provider Internal Medicine
DX: E03.9 Hypothyroidism, unspecified (principal); I10 Essential (primary) hypertension
CPT/HCPCS: 36415; 80053; 84439; 84443

== ENCOUNTER → 2020-08-25 15:15 | Outpatient (CLI) | payer MEDICARE, SELFPAY ==
[2018-12-06 17:07] VITALS: BMI 34.0
[2020-08-25] MEDS: COVID-19 VACC, Ad26(JANSSEN)/PF 0.5 ML IM (15:30)
== END ==
PROVIDERS: PCP Internal Medicine; Visit Provider Internal Medicine
DX: Z23 Encounter for immunization (principal)
CPT/HCPCS: 0031A; 91303

== ENCOUNTER → 2021-01-06 15:19 | Outpatient (CLI) | payer MEDICARE, SELFPAY ==
[2018-12-06 17:07] VITALS: BMI 34.0
[2021-01-06 16:48] LABS: Add Manual Diff / Slide Review NO; Basophils Absolute Auto 100 /uL (0-100); Basophils Percent Auto 0.8 % (0-2); Eosinophils Absolute Auto 100 /uL (0-450); Eosinophils Percent Auto 1.4 % (2-4); Hematocrit 37.2 % (36-46); Hemoglobin 12.1 g/dL (12.0-16.0); Lymphocytes Absolute Auto 3100 /uL (1100-4500); Lymphocytes Percent Auto 29.2 % (25-40); Mean Corpuscular HGB Conc 32.4 % (30-36); Mean Corpuscular Hemoglobin 28.3 PG (26-34); Mean Corpuscular Volume 87.4 fL (80-100); Monocytes Absolute Auto 1100 /uL (0-900); Monocytes Percent Auto 10.6 % (3-14); Neutrophils Absolute Auto 6200 /uL (1500-7000); Platelet Count 558 X10^3/uL (150-400); Red Blood Cell Count 4.26 X10^6/uL (4.0-5.2); Red Cell Distribution Width 14.5 % (11.6-14.8); White Blood Cell Count 10.7 X10^3/uL (4.5-11.0)
[2021-01-06 17:20] LABS: BUN Creatinine Ratio 30.4 (6-22); Blood Urea Nitrogen 21 mg/dL (7-17); Calcium 9.5 mg/dL (8.4-10.2); Carbon Dioxide 31 mmol/L (22-32); Chloride 104 mmol/L (98-107); Estimated Glomerular Filt Rate > 60.0 mL/min (>60); Glucose 106 mg/dL (80-110); HEMOLYSIS < 15 (0-50); Potassium 4.7 mmol/L (3.4-5.1); Sodium 140 mmol/L (137-145)
== END ==
PROVIDERS: PCP Internal Medicine; Referring Provider Internal Medicine; Visit Provider Internal Medicine
DX: D72.829 Elevated white blood cell count, unspecified (principal); N17.9 Acute kidney failure, unspecified
CPT/HCPCS: 36415; 80048; 85025

== ENCOUNTER → 2021-07-07 15:12 | Outpatient (CLI) | payer MEDICARE, SELFPAY ==
[2018-12-06 17:07] VITALS: BMI 34.0
[2021-07-07 16:02] LABS: Alanine Aminotransferase 18 IU/L (<35); Albumin Globulin Ratio 1.1 (1.0-2.8); Alkaline Phosphatase 108 U/L (38-126); Aspartate Aminotransferase 26 IU/L (14-36); BUN Creatinine Ratio 26.1 (6-22); Bilirubin Total 0.5 mg/dL (0.2-1.3); Blood Urea Nitrogen 29 mg/dL (7-17); Calcium 9.7 mg/dL (8.4-10.2); Carbon Dioxide 29 mmol/L (22-32); Chloride 104 mmol/L (98-107); Estimated Glomerular Filt Rate 47.8 mL/min (>60); Globulin 3.5 g/dL (1.7-4.1); Glucose 124 mg/dL (80-110); HEMOLYSIS < 15 (0-50); Potassium 3.9 mmol/L (3.4-5.1); Sodium 139 mmol/L (137-145); Total Protein 7.5 g/dL (6.3-8.2)
[2021-07-07 17:42] LABS: Free T4, Direct Thyroxine 1.21 ng/dL (0.78-2.19)
== END ==
PROVIDERS: PCP Internal Medicine; Referring Provider Internal Medicine; Visit Provider Internal Medicine
DX: E03.9 Hypothyroidism, unspecified (principal); F33.1 Major depressive disorder, recurrent, moderate; I10 Essential (primary) hypertension
CPT/HCPCS: 36415; 80053; 84439; 84443

== ENCOUNTER → 2021-11-04 15:30 | Outpatient (CLI) | payer MEDICARE, SELFPAY ==
[2018-12-06 17:07] VITALS: BMI 34.0
[2021-11-04 18:00] LABS: BUN Creatinine Ratio 18.3 (6-22); Blood Urea Nitrogen 17 mg/dL (7-17); Calcium 8.9 mg/dL (8.4-10.2); Carbon Dioxide 26 mmol/L (22-32); Chloride 104 mmol/L (98-107); Estimated Glomerular Filt Rate > 60 mL/min (>60); Glucose 92 mg/dL (80-110); HEMOLYSIS < 15 (0-50); Potassium 3.8 mmol/L (3.4-5.1); Sodium 140 mmol/L (137-145)
== END ==
PROVIDERS: PCP Internal Medicine; Referring Provider Internal Medicine; Visit Provider Internal Medicine
DX: N18.31 Chronic kidney disease, stage 3a (principal)
CPT/HCPCS: 36415; 80048

== ENCOUNTER → 2022-07-20 16:08 | Outpatient (CLI) | payer MEDICARE, SELFPAY ==
[2018-12-06 17:07] VITALS: BMI 34.0
[2022-07-20 18:18] LABS: Alanine Aminotransferase 21 IU/L (<35); Albumin Globulin Ratio 1.1 (1.0-2.8); Alkaline Phosphatase 112 U/L (38-126); Aspartate Aminotransferase 25 IU/L (14-36); BUN Creatinine Ratio 22.7 (6-22); Bilirubin Total 0.6 mg/dL (0.2-1.3); Blood Urea Nitrogen 22 mg/dL (7-17); Calcium 9.1 mg/dL (8.4-10.2); Carbon Dioxide 24 mmol/L (22-32); Chloride 100 mmol/L (98-107); Estimated Glomerular Filt Rate > 60 mL/min (>60); Globulin 3.5 g/dL (1.7-4.1); Glucose 108 mg/dL (80-110); HEMOLYSIS < 15 (0-50); Potassium 3.6 mmol/L (3.4-5.1); Sodium 139 mmol/L (137-145); Total Protein 7.5 g/dL (6.3-8.2)
[2022-07-20 18:48] LABS: Free T4, Direct Thyroxine 1.53 ng/dL (0.78-2.19)
[2022-07-20 19:02] LABS: Thyroid Stimulating Hormone 1.49 uIU/mL (0.47-4.68)
== END ==
PROVIDERS: PCP Internal Medicine; Referring Provider Internal Medicine; Visit Provider Internal Medicine
DX: E03.9 Hypothyroidism, unspecified (principal); I10 Essential (primary) hypertension; N18.31 Chronic kidney disease, stage 3a
CPT/HCPCS: 36415; 80053; 84439; 84443

== ENCOUNTER → 2022-08-24 16:18 | Outpatient (CLI) | payer MEDICARE, SELFPAY ==
[2018-12-06 17:07] VITALS: BMI 34.0
== END ==
PROVIDERS: PCP Internal Medicine; Referring Provider Orthopaedic Surgery Foot and Ankle Surgery; Visit Provider Orthopaedic Surgery Foot and Ankle Surgery
DX: Z01.818 Encounter for other preprocedural examination (principal)
CPT/HCPCS: 93005; 93010

== ENCOUNTER → 2023-08-09 14:42 | Outpatient (CLI) | payer MEDICARE, SELFPAY ==
[2018-12-06 17:07] VITALS: BMI 34.0
[2023-08-09 17:05] LABS: Alanine Aminotransferase 17 IU/L (<35); Albumin 3.9 g/dL (3.5-5.0); Albumin Globulin Ratio 1.2 (1.0-2.8); Alkaline Phosphatase 74 U/L (38-126); Aspartate Aminotransferase 31 IU/L (14-36); BUN Creatinine Ratio 15.7 (6-22); Bilirubin Total 0.6 mg/dL (0.2-1.3); Blood Urea Nitrogen 18 mg/dL (7-17); Calcium 9.2 mg/dL (8.4-10.2); Carbon Dioxide 25 mmol/L (22-32); Chloride 97 mmol/L (98-107); Estimated Glomerular Filt Rate 49 mL/min (>60); Globulin 3.3 g/dL (1.7-4.1); Glucose 107 mg/dL (80-110); HEMOLYSIS < 15 (0-50); Potassium 3.8 mmol/L (3.4-5.1); Sodium 132 mmol/L (137-145); Total Protein 7.2 g/dL (6.3-8.2)
[2023-08-09 17:11] LABS: Free T4, Direct Thyroxine 1.77 ng/dL (0.78-2.19)
[2023-08-09 17:26] LABS: Thyroid Stimulating Hormone 0.043 uIU/mL (0.47-4.68)
== END ==
PROVIDERS: PCP Internal Medicine; Referring Provider Internal Medicine; Visit Provider Internal Medicine
DX: E03.9 Hypothyroidism, unspecified (principal); I10 Essential (primary) hypertension
CPT/HCPCS: 36415; 80053; 84439; 84443

== ENCOUNTER → 2024-07-07 16:35 | Outpatient (CLI) | payer MEDICARE, SELFPAY ==
[2023-10-08 15:19] VITALS: BMI 34.0
[2024-07-07 17:32] LABS: Alanine Aminotransferase 23 IU/L (<35); Albumin 4.1 g/dL (3.5-5.0); Albumin Globulin Ratio 1.2 (1.0-2.8); Alkaline Phosphatase 90 U/L (38-126); Aspartate Aminotransferase 34 IU/L (14-36); BUN Creatinine Ratio 21.1 (6-22); Bilirubin Total 0.5 mg/dL (0.2-1.3); Blood Urea Nitrogen 23 mg/dL (7-17); Calcium 9.2 mg/dL (8.4-10.2); Carbon Dioxide 27 mmol/L (22-32); Chloride 102 mmol/L (98-107); Cholesterol 219 mg/dL (140-199); Estimated Glomerular Filt Rate 52 mL/min (>60); Globulin 3.4 g/dL (1.7-4.1); Glucose 110 mg/dL (80-110); HEMOLYSIS < 15 (0-50); Potassium 4.3 mmol/L (3.4-5.1); Sodium 135 mmol/L (137-145); Total Protein 7.5 g/dL (6.3-8.2); Triglycerides 103 mg/dL (35-150)
[2024-07-07 17:38] LABS: HDL Cholesterol 108 mg/dL (40-60); LDL Cholesterol Calculated 90 mg/dL (<100)
[2024-07-07 17:50] LABS: Free T3, Triiodothyronine Free 3.07 pg/mL (2.77-5.27); Free T4, Direct Thyroxine 1.35 ng/dL (0.78-2.19)
[2024-07-07 18:04] LABS: Thyroid Stimulating Hormone 1.89 uIU/mL (0.47-4.68)
== END ==
PROVIDERS: PCP Internal Medicine; Referring Provider Internal Medicine; Visit Provider Internal Medicine
DX: I12.9 Hypertensive chronic kidney disease with stage 1 through stage 4 chronic kidney disease, or unspecified chronic kidney disease (principal); E03.9 Hypothyroidism, unspecified; N18.31 Chronic kidney disease, stage 3a; E78.2 Mixed hyperlipidemia
CPT/HCPCS: 36415; 80053; 80061; 84439; 84443; 84481